=== PATIENT | male | born 1950 | race Caucasian/White ===

== ENCOUNTER → 2017-05-14 | Outpatient (CLI) | payer MEDICARE, BC ==
[2016-05-14 17:43] VITALS: BP 123/47
[~2017-05-14] MED LIST: ASPI325T8 PO; ASTA4CAP PO; DIPH25CA58 PO; FENO43CA PO; LISI10TA2 PO; METO50TA29 PO; PRED50TA PO; SIMV5TAB5 PO; [UNRECOGNIZED DRUG - CODE] PO
[2017-05-14 12:11] LABS: ALT (SGPT) 14 U/L (16-63); AST (SGOT) 14 U/L (15-37)
== END | disposition home or self-care (01) ==
LOC: LAB 10:49
PROVIDERS: ATTEND Internal Medicine Cardiovascular Disease
DX: E78.5 Hyperlipidemia, unspecified (principal)
CPT/HCPCS: 36415; 80061; 84450; 84460

== ENCOUNTER 2020-08-29 22:10 | Emergency (ER) | payer MEDICARE, BC ==
[~2020-08-29] VITALS: Ht 177.8 cm; Wt 69.5 kg
[~2020-08-29 22:10] MED LIST changes: -FENO43CA PO; +FENO43CA5 PO; +SIMV5TAB14 PO; -SIMV5TAB5 PO
--- NOTE | 2020-08-29 22:32 | PHYS DOC ---
Past History Past Medical History: High Cholesterol, Hypertension, Other Past Surgical History: Other Alcohol Use: None Drug Use: None Adult General Chief Complaint Chief Complaint: CHEST PAIN HPI HPI Patient is a 70-year-old male who presents via POV for chest discomfort. Patient has significant past medical history of cardiac disease, has history of distant CABG and is well covered in outpatient setting by PCP and precision honer. He has been taking all medications as prescribed with most recent precision honer visit approximately 5 months ago. States he was driving after eating a fatty meal and had substernal chest discomfort. Reports having several episodes and urges to burp without radiation. 1 episode was severe enough it made him think about pulling over into nearby parking lot to recover. Each episode lasted less than 30 seconds in severity, reports suffering about [address] home. States he went home and after thinking about numerous episodes and his history of cardiac disease, he got concerned and drove himself to our ER for evaluation. Denies any fever, COVID-19 contact, headache, diaphoresis, ripping or tearing chest pain, shortness of breath, cough, abdominal pain, urinary symptoms, changes in motor or sensory function. Review of Systems Review of Systems Fourteen body systems of review of systems have been reviewed. See HPI for pertinent positives and negative responses, other benz all other systems are negative, non-pertinent or non-contributory Allergies Allergies Allergies Coded Allergies Type Severity Reaction Last Updated Verified No Known Drug Allergies 05/14/16 No Physical Exam Physical Exam Constitutional: Well developed, well nourished, no acute distress, non-toxic appearance. HENT: Normocephalic, atraumatic, bilateral external ears normal, oropharynx moist, no oral exudates, nose normal. Eyes: PERRLA, EOMI, conjunctiva normal, no discharge. Neck: Normal range of motion, no tenderness, supple, no stridor. Cardiovascular: Heart rate regular, sinus rhythm, no murmurs rubs or gallops Lungs & Thorax: Bilateral breath sounds clear to auscultation Abdomen: Bowel sounds normal, soft, no tenderness, no masses, no pulsatile masses. Nonsurgical abdomen, no peritoneal signs Skin: Warm, dry, no erythema, no rash. Back: No tenderness, no CVA tenderness. Extremities: No tenderness, no cyanosis, no clubbing, ROM intact, no edema. Neurologic: Alert and oriented X 3, grossly normal motor & sensory function, no focal deficits noted. Psychologic: Affect normal, judgement normal, mood normal. Current Patient Data Vital Signs Vital Signs Date Time Temp Pulse Resp B/P (MAP) Pulse Ox O2 Delivery O2 Flow Rate FiO2 08/29/20 23:27 57 14 128/74 (92) 98 Room Air 08/29/20 22:57 57 17 130/79 (96) 99 Room Air 08/29/20 22:10 59 20 142/79 (100) 100 Room Air Lab Results Laboratory Tests Test 08/29/20 22:20 White Blood Count 7.1 x10^3/uL Red Blood Count 4.37 x10^6/uL Hemoglobin 13.2 g/dL Hematocrit 40.2 % Mean Corpuscular Volume 92 fL Mean Corpuscular Hemoglobin 30 pg Mean Corpuscular Hemoglobin Concent 33 g/dL Red Cell Distribution Width 13.3 % Platelet Count 214 x10^3/uL Neutrophils (%) (Auto) 59 % Lymphocytes (%) (Auto) 28 % Monocytes (%) (Auto) 8 % Eosinophils (%) (Auto) 5 % Basophils (%) (Auto) 1 % Neutrophils # (Auto) 4.2 x10^3uL Lymphocytes # (Auto) 1.9 x10^3/uL Monocytes # (Auto) 0.6 x10^3/uL Eosinophils # (Auto) 0.3 x10^3/uL Basophils # (Auto) 0.0 x10^3/uL Sodium Level 141 mmol/L Potassium Level 4.1 mmol/L Chloride Level 103 mmol/L Carbon Dioxide Level 30 mmol/L Anion Gap 8 Blood Urea Nitrogen 31 mg/dL Creatinine 1.3 mg/dL Estimated GFR (Cockcroft-Gault) 54.6 BUN/Creatinine Ratio 24 Glucose Level 81 mg/dL Calcium Level 9.2 mg/dL Total Bilirubin 0.4 mg/dL Aspartate Amino Transf (AST/SGOT) 15 U/L Alanine Aminotransferase (ALT/SGPT) 22 U/L Alkaline Phosphatase 78 U/L Troponin I Quantitative < 0.017 ng/mL [id number] Natriuretic Peptide 242 pg/mL Total Protein 7.1 g/dL Albumin 4.3 g/dL Albumin/Globulin Ratio 1.5 Lipase 158 U/L EKG EKG EKG ordered and interpreted by myself at 2230 hrs. 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 Instructions: / History: COMPARISON: No Prior FINDINGS: The heart is not enlarged. Mediastinal and hilar contours are normal. Patchy opacities right midlung and bilateral lower lungs. No pleural effusion or pneumothorax. IMPRESSION: Patchy opacities right midlung and bilateral lower lungs, possibly multifocal consolidative process such as pneumonia. Imaging follow-up to resolution is recommended. Electronically signed by: Sanya Gaytan MD (08/29/2020 10:59 PM) [facility] Heart Score HEART Score for Chest Pain: HEART Score for Chest Pain Response (Comments) Value Age > 65 2 Risk Factors >3 Risk Factors or Hx CAD 2 Total 4 Risk Factors: Risk Factors: DM, Current or recent (<one month) smoker, HTN, HLP, family history of CAD, obesity. Risk Scores: Risk Factors: DM, Current or recent (<one month) smoker, HTN, HLP, family history of CAD, obesity. Course & Med Decision Making Course & Med Decision Making Discussed with the patient all findings and diagnostic testing. I discussed most likely diagnosis of GERD but could not definitively rule out cardiac etiology in a high risk patient. I discussed heart score, I recommended cardiac observation for patient but he declined. States he has good follow-up and access to follow- up with his precision honer and would prefer to be seen by them. Supportive care practices for GERD discussed. I stressed need for close outpatient follow-up to review today's ER visit. Strict return precautions were also discussed at length with good understanding by patient. Patient voiced understanding and agreement with the plan. Patient knows to come back for repeat evaluation if concerning signs or symptoms present prior to outpatient follow-up. Hemodynamically stable, asymptomatic, ambulatory and well-appearing at time of disposition. Dragon Disclaimer Dragon Disclaimer This electronic medical record was generated, in whole or in part, using a voice recognition dictation system. Departure Departure: Impression: Primary Impression: Chest pain, unspecified Disposition: 01 DC HOME SELF CARE/HOMELESS Condition: STABLE Referrals: ANA CHOI MD (PCP) Patient Instructions: Chest Pain (Nonspecific) Additional Instructions: You were seen for chest pain. Your workup did not show any acute abnormalities today, but does not indicate that you do not have underlying cardiovascular illness. As discussed, this might be an acute presentation of more concerning pathology. You were offered cardiac observation at our hospital but deferred and instead would like to pursue this in outpatient setting with primary care physician and precision honer. As such, I recommend you call them first thing tomorrow morning to discuss ER visit this evening and need for outpatient reevaluation and provocative testing as they deem necessary. You should return to the ED if you develop worsening chest pain, shortness of breath, fever, abnormal sweating, leg swelling, or any other new or concerning symptoms. It was a pleasure to take care of you and I wish you the best going forward BELTRAN PATRICK DO Aug 29, 2020 22:31
--- NOTE | 2020-08-29 22:35 | EKG ---
[facility] [address] [place] [address] Test Date: 2020-08-29 Test Time: 22:20:27 Pat Name: ROCAEL RITCHIE Department: Room: Gender: M Fishing Vessel Operator: VINCENT : 1950 Requested By: BELTRAN PATRICK Order Number: [id number] Reading MD: Measurements Intervals [place] Rate: 62 P: 57 DE: 218 QRS: 10 QRSD: 136 T: 31 QT: 388 QTc: 396 Interpretive Statements SINUS RHYTHM LEFT ATRIAL ABNORMALITY RIGHT BUNDLE BRANCH BLOCK RVH WITH REPOLARIZATION ABNORMALITY QRS(T) CONTOUR ABNORMALITY CONSISTENT WITH INFERIOR INFARCT PROBABLY OLD ABNORMAL ECG RI6.02 No previous ECG available for comparison
[2020-08-29 22:51] LABS: BASO % 1 % (0-3); EOS # 0.3 x10^3/uL (0.0-0.7); EOS % 5 % (0-3); HEMATOCRIT 40.2 % (39.0-53.0); HEMOGLOBIN 13.2 g/dL (13.0-17.5); LYMPH # 1.9 x10^3/uL (1.0-4.8); LYMPH % 28 % (24-48); MEAN CORPUSCULAR HEMOGLOBIN 30 pg (25-35); MEAN CORPUSCULAR HGB CONC 33 g/dL (31-37); MEAN CORPUSCULAR VOLUME 92 fL (79-100); MONO # 0.6 x10^3/uL (0.0-1.1); MONO % 8 % (0-9); NEUT # 4.2 x10^3uL (1.8-7.7); NEUT % 59 % (31-73); PLATELET COUNT 214 x10^3/uL (140-400); RED BLOOD COUNT 4.37 x10^6/uL (4.30-5.70); RED CELL DISTRIBUTION WIDTH 13.3 % (11.5-14.5); WHITE BLOOD COUNT 7.1 x10^3/uL (4.0-11.0)
[2020-08-29 22:59] LABS: CALCIUM 9.2 mg/dL (8.5-10.1); CREATININE 1.3 mg/dL (0.7-1.3); GFR 54.6; POTASSIUM 4.1 mmol/L (3.5-5.1)
--- NOTE | 2020-08-29 23:02 | RAD ---
EXAM: AP View of the chest DATE: 08/29/2020 10:31 PM INDICATION: Reason: CHEST PAIN / Spl. Instructions: / History: COMPARISON: No Prior FINDINGS: The heart is not enlarged. Mediastinal and hilar contours are normal. Patchy opacities right midlung and bilateral lower lungs. No pleural effusion or pneumothorax. IMPRESSION: Patchy opacities right midlung and bilateral lower lungs, possibly multifocal consolidative process s uch as pneumonia. Imaging follow-up to resolution is recommended. Electronically signed by: Sanya Gaytan MD (08/29/2020 10:59 PM) [facility]
[2020-08-29 23:11] LABS: ALBUMIN 4.3 g/dL (3.4-5.0); ALBUMIN/GLOBULIN RATIO 1.5 (1.0-1.7); TOTAL BILIRUBIN 0.4 mg/dL (0.2-1.0); TOTAL PROTEIN 7.1 g/dL (6.4-8.2)
[2020-08-29 23:27] VITALS: BP 128/74
== END 2020-08-29 23:54 | disposition home or self-care (01) ==
LOC: ER 22:10
DX: R07.2 Precordial pain (principal); E78.00 Pure hypercholesterolemia, unspecified; I10 Essential (primary) hypertension; Z95.1 Presence of aortocoronary bypass graft
CPT/HCPCS: 36415; 71045; 80053; 83690; 83880; 84484; 85025; 93005; 99285

== ENCOUNTER → 2021-01-16 | Outpatient (CLI) | payer MEDICARE, BC ==
[~2021-01-16] MED LIST changes: +LISI10TA16 PO; -LISI10TA2 PO
[2021-01-16 12:00] LABS: ALBUMIN 4.2 g/dL (3.4-5.0); ALBUMIN/GLOBULIN RATIO 1.4 (1.0-1.7); CALCIUM 8.9 mg/dL (8.5-10.1); CREATININE 1.1 mg/dL (0.7-1.3); GFR 66.2; POTASSIUM 4.5 mmol/L (3.5-5.1); TOTAL BILIRUBIN 0.8 mg/dL (0.2-1.0); TOTAL PROTEIN 7.3 g/dL (6.4-8.2)
== END ==
LOC: LAB 10:43
PROVIDERS: ATTEND Internal Medicine Cardiovascular Disease
DX: I10 Essential (primary) hypertension (principal); E78.5 Hyperlipidemia, unspecified
CPT/HCPCS: 36415; 80053; 80061